=== PATIENT | female | born 1995 | race African-American/Black ===

== ENCOUNTER 2018-03-28 17:36 | Emergency (ER) | payer MEDICAID ==
[2018-03-28] MEDS ORDERED: ACETAMINOPHEN 325 MG TABLET PO ONE (18:19)
--- NOTE | 2018-03-28 18:19 | ER Document Report ---
ED Medical Screen (RME) - General Chief Complaint: Headache Stated Complaint: HEADACHE Time Seen by Provider: 03/28/18 17:58 Notes: RAPID MEDICAL EVALUATION DISCLOSURE I have seen this patient as part of a Rapid Medical Evaluation and, if applicable, placed any initially appropriate orders. The patient will be seen and fully evaluated, including a full history and physical exam, by a provider ( in Main ED or Fast Track) when a room becomes available. 22-year-old female here with complaints of headache described as a pressure ongoing chronically but states that over the past 2 weeks she is having the symptoms almost daily. She is also starting to have some blurry vision in both eyes. No nausea vomiting fevers chills neck pain. She has a REVIEW SCHEDULING COORDINATOR shunt that was placed at however she has not seen her physician for follow-up in quite some time. 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 IN LAST 30 DAYS: No - Related Data Allergies/Adverse Reactions: No Known Allergies Allergy (Unverified 03/28/18 18:05) Past Medical History - Social History Frequency of alcohol use: Rare Drug Abuse: None Renal/ Medical History: Denies: Hx Peritoneal Dialysis Psychiatric Medical History: Reports: Hx Depression Past Surgical History: Reports: Hx Section - X2, Hx Neurologic Surgery - REVIEW SCHEDULING COORDINATOR shunt Physical Exam - Vital signs Vitals: Temp Pulse Resp BP Pulse Ox 98.6 F 96 18 137/86 H 100 03/28/18 17:40 03/28/18 17:40 03/28/18 17:40 03/28/18 17:40 03/28/18 17:40 Course - Vital Signs Vital signs: Temp Pulse Resp BP Pulse Ox 98.6 F 96 18 137/86 H 100 03/28/18 17:40 03/28/18 17:40 03/28/18 17:40 03/28/18 17:40 03/28/18 17:40
[2018-03-28 18:56] LABS: ABSOLUTE BASOPHILS # (AUTO) 0.1 10^3/uL (0.0-0.2); ABSOLUTE EOSINOPHILS # (AUTO) 0.2 10^3/uL (0.0-0.6); ABSOLUTE LYMPHOCYTES (AUTO) 3.1 10^3/uL (0.5-4.7); ABSOLUTE MONOCYTES (AUTO) 0.6 10^3/uL (0.1-1.4); ABSOLUTE NEUT (AUTO) 4.8 10^3/uL (1.7-8.2); BASOPHILS % (AUTO) 1.5 % (0-2); EOSINOPHILS % (AUTO) 1.8 % (0-6); HEMATOCRIT 40.2 % (36.0-47.0); LYMPHOCYTES % (AUTO) 35.5 % (13-45); MEAN CORPUSCULAR HEMOGLOBIN 24.8 pg (27.0-33.4); MEAN CORPUSCULAR HGB CONC 32.3 g/dL (32.0-36.0); MEAN CORPUSCULAR VOLUME 77 fl (80-97); MONOCYTES % (AUTO) 6.5 % (3-13); PLATELET COUNT 344 10^3/uL (150-450); RED BLOOD COUNT 5.23 10^6/uL (3.72-5.28); RED CELL DISTRIBUTION WIDTH 14.6 % (11.5-14.0); SEGMENTED NEUTROPHILS % (AUTO) 54.7 % (42-78); TOTAL CELLS COUNTED % (AUTO) 100 %; WHITE BLOOD COUNT 8.8 10^3/uL (4.0-10.5)
[2018-03-28 19:17] LABS: ANION GAP 13 (5-19); BLOOD UREA NITROGEN 11 mg/dL (7-20); CALCIUM 9.8 mg/dL (8.4-10.2); CARBON DIOXIDE 24 mmol/L (22-30); CHLORIDE 109 mmol/L (98-107); GLUCOSE 66 mg/dL (75-110); POTASSIUM 4.1 mmol/L (3.6-5.0); SODIUM 145.5 mmol/L (137-145)
[2018-03-28] MEDS ORDERED: NORMAL SALINE 1000 ML 1,000 ML IV ONE (19:47)
[2018-03-28] MEDS ORDERED: DIPHENHYDRAMINE HCL 50 MG/ML VIAL IV ONE (19:47)
[2018-03-28] MEDS ORDERED: PROCHLORPERAZINE EDISYLATE INJ 10 MG/2 ML VIAL IV ONE (19:47)
--- NOTE | 2018-03-28 19:50 | RADIOLOGY REPORT (SQ) ---
EXAM DESCRIPTION: SHUNTOGRAM SERIES COMPLETED DATE/TIME: 03/28/2018 7:15 pm REASON FOR STUDY: freq STRONG; h/o shunt COMPARISON: None. TECHNIQUE: 1 AP view of the skull, 2 AP views of the chest and 1 AP view of the abdomen, total of fo ur views were obtained. LIMITATIONS: None. FINDINGS: A radiopaque catheter is seen overlying the right side of the skull. No radiopaque cathet er is noted within the soft tissues of the neck, overlying the chest or the abdomen. The heart is not enlarged. There is no focal consolidation, pleural effusion or pneumothorax. Nonspecific bowel gas pattern. IMPRESSION: Radiopaque catheter overlying the right side of the skull. TECHNICAL DOCUMENTATION: JOB ID: [id number] 2010 [employer]- All Rights Reserved Reading location - IP/workstation name: [email or web address]
--- NOTE | 2018-03-28 20:04 | ER Document Report ---
ED Headache - General Chief Complaint: Headache Stated Complaint: HEADACHE Time Seen by Provider: 03/28/18 17:58 Mode of Arrival: Ambulatory Information source: Patient Notes: Patient presents complaining of right-sided headache pain that she has had off and on for the past 2 weeks. Patient additionally complains of occasional blurred vision that she reports she has had for the past 2 years. Patient denies any nausea vomiting or fever. Patient denies any neck or back pain. Patient denies any head injury. Patient states she has a history of hydrocephalus as an and had a shunt placed and was told that she would need to have her shunt replaced whenever she was about [age] years old although never followed up. Patient states that she was taken out of her primary home as a child and placed in her in her grandmother's custody, and due to this there was a lack of follow-up regarding her shunt. TRAVEL OUTSIDE OF THE [place] IN LAST 30 DAYS: No - HPI Patient complains to provider of: Headache Patient reports: INTERIOR DESIGN PROFESSIONAL Shunt Onset: Other - 2 wks Onset was: Gradual Timing: Still present Quality of pain: Achy Pain Level: 4 Associated symptoms: denies: Dizzy, Fever, Lightheaded, Photophobia, Speech problems, Stiff neck, Sweaty, Trouble walking Similar symptoms previously: Yes Recently seen / treated by doctor: No - Related Data Allergies/Adverse Reactions: No Known Allergies Allergy (Unverified 03/28/18 18:05) Past Medical History - General Information source: Patient - Social History Smoking Status: Former Smoker Frequency of alcohol use: Rare Drug Abuse: None 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 denies: Fever, Recent illness EENT: Blurred vision - x 2 years Cardiovascular: No symptoms reported. denies: Chest pain Respiratory: No symptoms reported Gastrointestinal: No symptoms reported. denies: Abdominal pain, Nausea, Vomiting Genitourinary: No symptoms reported Female Genitourinary: No symptoms reported Musculoskeletal: No symptoms reported. denies: Back pain, Neck pain Skin: No symptoms reported Hematologic/Lymphatic: No symptoms reported Neurological/Psychological: Headaches. denies: Confusion, Weakness, Gait changes, Speech impairment, Numbness Physical Exam - Vital signs Vitals: Temp Pulse Resp BP Pulse Ox 98.6 F 96 18 137/86 H 100 03/28/18 17:40 03/28/18 17:40 03/28/18 17:40 03/28/18 17:40 03/28/18 17:40 - General General appearance: Appears well, Alert In distress: None - HEENT Head: Normocephalic Eyes: Normal Conjunctiva: Normal Extraocular movements intact: Yes Eyelashes: Normal Pupils: PERRL Visual acuity- Right eye: 20/50 Visual acuity- Left eye: 20/50 Visual acuity- Both eyes: 20/50 Corrective lenses worn: No - PATINET SAYD ALL THE REST LETTERS WERE TO BLURY TO READ. MOLIVER PCT Nasal: Normal Mouth/Lips: Normal Mucous membranes: Normal Pharynx: Normal. No: Erythema, Exudate, Tonsillar hypertrophy Neck: Normal, Supple. No: Lymphadenopathy, Meningismus - Respiratory Respiratory status: No respiratory distress Chest status: Nontender Breath sounds: Normal. No: Rales, Rhonchi, Stridor, Wheezing Chest palpation: Normal - Cardiovascular Rhythm: Regular Heart sounds: S1 appreciated, S2 appreciated Murmur: No - Back Back: Normal, Nontender. No: Vertebra tenderness - Extremities General upper extremity: Normal inspection, Normal strength General lower extremity: Normal inspection, Normal strength - Neurological Neuro grossly intact: Yes Cognition: Normal Orientation: AAOx4 [place] Coma Scale Eye Opening: Spontaneous Dylan Coma Scale Verbal: Oriented Dylan Coma Scale Motor: Obeys Commands Dylan Coma Scale Total: 15 Speech: Normal. No: Dysarthria Cranial nerves: Normal. No: Facial palsy, Tongue deviation Cerebellar coordination: Normal Motor strength normal: LUE, RUE, LLE, RLE - Psychological Associated symptoms: Normal affect, Normal mood - Skin Skin Temperature: Warm Skin Moisture: Dry Skin Color: Normal Course - Re-evaluation Re-evalutation: 03/28/18 20:[address] scan report with Dr. Dillon, recommends outpatient follow-up with neurosurgical provider for further evaluation. 03/28/18 20:41 The patient presents with headache without signs of OVERSIZE LOAD PILOT ESCORT bleed, stroke, infection , or other serious etiology. The patient is neurologically intact. Given the extremely low risk of these diagnoses further testing and evaluation for these possibilities does not appear to be indicated at this time. The patient has been instructed to return if the symptoms worsen or change in any way. - Vital Signs Vital signs: Temp Pulse Resp BP Pulse Ox 98.6 F 95 16 114/90 H 96 03/28/18 17:40 03/28/18 21:08 03/28/18 21:08 03/28/18 21:08 03/28/18 21:08 - Laboratory Result Diagrams: 03/28/18 18:41 03/28/18 18:41 Laboratory results interpreted by me: 03/28/18 03/28/18 18:41 18:41 MCV 77 L MCH 24.8 L RDW 14.6 H Sodium 145.5 H Chloride 109 H Glucose 66 L 03/29/18 02:08 Labs- Entire Visit 03/28/18 03/28/18 18:41 18:41 WBC 8.8 RBC 5.23 Hgb 13.0 Hct 40.2 MCV 77 L MCH 24.8 L MCHC 32.3 RDW 14.6 H Plt Count 344 Seg Neutrophils % 54.7 Lymphocytes % 35.5 Monocytes % 6.5 Eosinophils % 1.8 Basophils % 1.5 Absolute Neutrophils 4.8 Absolute Lymphocytes 3.1 Absolute Monocytes 0.6 Absolute Eosinophils 0.2 Absolute Basophils 0.1 Sodium 145.5 H Potassium 4.1 Chloride 109 H Carbon Dioxide 24 Anion Gap 13 BUN 11 Creatinine 0.92 Est GFR ( Amer) > 60 Est GFR (Non-Af Amer) > 60 Glucose 66 L Calcium 9.8 - Diagnostic Test Radiology reviewed: Image reviewed, Reports reviewed Discharge - Discharge Clinical Impression: Headache Qualifiers: Headache type: unspecified Headache chronicity pattern: unspecified pattern Intractability: not intractable Qualified Code(s): R51 - Headache Condition: Stable Disposition: HOME, SELF-CARE Instructions: Intravenous Compazine for Headaches ([facility]), Use of Diphenhydramine , Headache ([facility]) Additional Instructions: Return immediately for any new or worsening symptoms Followup with your primary care provider, call tomorrow to make a followup appointment Follow-up with an associate biological sales for further evaluation Follow-up with a neurosurgeon, call Thursday for an appointment [facility] has office hours here in [facility] phone [phone], [address] [place] [id number] Prescriptions: Butalb/Acetaminophen/Caffeine [Fioricet (50-325-40 mg) Tablet] 1 - 2 tab PO Q4H #20 each Forms: Return to Work Referrals: [facility] [Provider Group] - Follow up as needed
--- NOTE | 2018-03-28 20:29 | RADIOLOGY REPORT (SQ) ---
EXAM DESCRIPTION: CT HEAD WITHOUT COMPLETED DATE/TIME: 03/28/2018 8:05 pm REASON FOR STUDY: STRONG, shunt COMPARISON: None. TECHNIQUE: Axial images acquired through the brain without intravenous contrast. Images reviewed wi th bone, brain and subdural windows. Images stored on PACS. All CT scanners at this facility use dose modulation, iterative reconstruction, and/or weight based d osing when appropriate to reduce radiation dose to as low as reasonably achievable (ALARA). [facility]: Dose Right [facility]: CareDose [facility]: Dose Right [facility]: Teradose 4D [facility]: [employer] RADIATION DOSE: mGy. LIMITATIONS: None. FINDINGS: VENTRICLES: Mildly prominent. CEREBRUM: No mass effect. No hemorrhage. No midline shift. Normal de la torre/white matter differentiatio n. No evidence for acute territorial infarction. CEREBELLUM: No mass effect. No hemorrhage. No alteration of density. No evidence for acute infarct ion. EXTRAAXIAL SPACES: No fluid collections. ORBITS AND GLOBE: Symmetrical contour of the globes. CALVARIUM: No depressed skull fracture. PARANASAL SINUSES: No air-fluid level. SOFT TISSUES: No hematoma. OTHER: A radiopaque catheter inserted through a right frontal approach terminates at the right middl e fossa. IMPRESSION: No acute intracranial hemorrhage or acute territorial infarct. Mildly prominent ventric ular system, may represent chronic change versus communicating hydrocephalus. Correlation with prior studies recommended. EVIDENCE OF ACUTE STROKE: NO. COMMENT: Quality ID # [id number]: Final reports with documentation of one or more dose reduction techniques (e.g., Automated exposure control, adjustment of the mA and/or kV according to patient size, use of iterative reconstruction technique) TECHNICAL DOCUMENTATION: JOB ID: [id number] [id number] 2010 [employer]- All Rights Reserved Reading location - IP/workstation name: [email or web address]
[2018-03-28 21:09] VITALS: BP 114/90
== END 2018-03-28 21:13 | disposition home or self-care (01) ==
LOC: ER 17:36
DX: R51 Headache (principal); Z98.2 Presence of cerebrospinal fluid drainage device; Z87.891 Personal history of nicotine dependence
CPT/HCPCS: 99284; 96361; 96374; 96375; 36415; 85025; 80048; 75809; 70450; J3490; J1200; J0780; J7030